=== PATIENT | male | born 1970 | race Caucasian/White ===

== ENCOUNTER 2017-07-15 06:27 | Outpatient (CLI) | payer OTHER | END 2017-07-15 06:43 | disposition home or self-care (01) | LOC: LAB 06:27 | DX: R76.11 Nonspecific reaction to tuberculin skin test without active tuberculosis (principal) ==

== ENCOUNTER → 2018-03-31 06:13 | Outpatient (CLI) | payer OTHER | END | disposition home or self-care (01) | LOC: LAB 06:13 | DX: E03.8 Other specified hypothyroidism (principal); N40.0 Benign prostatic hyperplasia without lower urinary tract symptoms; R73.9 Hyperglycemia, unspecified ==

== ENCOUNTER 2018-06-17 15:48 | Outpatient (CLI) | payer OTHER | END 2018-06-17 18:00 | disposition home or self-care (01) | LOC: RAD 15:48 | DX: R05 Cough (principal) ==

== ENCOUNTER 2018-06-17 15:53 | Outpatient (CLI) | payer OTHER | END 2018-06-17 18:00 | disposition home or self-care (01) | LOC: LAB 15:53 | DX: R05 Cough (principal) ==

== ENCOUNTER 2018-12-05 11:43 | Outpatient (CLI) | payer OTHER | END 2018-12-05 13:47 | disposition home or self-care (01) | LOC: RAD 11:43 | DX: M12.561 Traumatic arthropathy, right knee (principal) ==

== ENCOUNTER 2019-12-30 10:00 | Outpatient (CLI) | payer OTHER | END 2019-12-30 15:00 | disposition home or self-care (01) | LOC: PPH VACUNA 10:00 | DX: Z23 Encounter for immunization (principal) ==

== ENCOUNTER 2020-03-10 05:00 | Outpatient (CLI) | payer OTHER | END 2020-03-10 15:00 | disposition home or self-care (01) | LOC: LAB 05:00 | PROVIDERS: ATTEND Internal Medicine Geriatric Medicine | DX: Z20.828 Contact with and (suspected) exposure to other viral communicable diseases (principal); E03.8 Other specified hypothyroidism; E56.8 Deficiency of other vitamins; E78.2 Mixed hyperlipidemia; I11.9 Hypertensive heart disease without heart failure; E11.9 Type 2 diabetes mellitus without complications; E55.9 Vitamin D deficiency, unspecified; H01.9 Unspecified inflammation of eyelid ==

== ENCOUNTER 2020-03-27 08:53 | Outpatient (CLI) | payer OTHER | END 2020-03-27 18:20 | disposition home or self-care (01) | LOC: PPH VACUNA 08:53 | DX: Z23 Encounter for immunization (principal) ==

== ENCOUNTER 2020-06-13 13:47 | Outpatient (CLI) | payer OTHER | END 2020-06-13 15:29 | disposition home or self-care (01) | LOC: LAB 13:47 | PROVIDERS: ATTEND Internal Medicine Pulmonary Disease | DX: R05 Cough (principal); Z20.828 Contact with and (suspected) exposure to other viral communicable diseases; Z20.822 Contact with and (suspected) exposure to COVID-19; R06.02 Shortness of breath; R50.9 Fever, unspecified ==

== ENCOUNTER 2020-10-13 17:00 | Outpatient (CLI) | payer OTHER | END 2020-10-13 17:01 | disposition home or self-care (01) | LOC: LAB 17:00 | PROVIDERS: ATTEND Internal Medicine Pulmonary Disease | DX: E72.89 Other specified disorders of amino-acid metabolism (principal); I11.9 Hypertensive heart disease without heart failure ==

== ENCOUNTER 2020-10-25 13:11 | Outpatient (CLI) | payer OTHER | END 2020-10-25 14:44 | disposition home or self-care (01) | LOC: LAB 13:11 | PROVIDERS: ATTEND Internal Medicine Pulmonary Disease | DX: U07.1 COVID-19 (principal); R05 Cough; R06.02 Shortness of breath; R50.9 Fever, unspecified ==

== ENCOUNTER 2020-12-25 09:50 | Outpatient (CLI) | payer OTHER | END 2020-12-25 10:50 | disposition home or self-care (01) | LOC: ASH CLINIC 09:50 | PROVIDERS: ATTEND Internal Medicine Pulmonary Disease | DX: Z23 Encounter for immunization (principal); U07.1 COVID-19 ==

== ENCOUNTER 2021-01-17 11:00 | Outpatient (CLI) | payer OTHER | END 2021-01-17 11:15 | disposition home or self-care (01) | LOC: PPH VACUNA 11:00 | PROVIDERS: ATTEND Emergency Medicine Pediatric Emergency Medicine | DX: Z23 Encounter for immunization (principal) ==

== ENCOUNTER 2021-08-02 08:00 | Outpatient (CLI) | payer OTHER | END 2021-08-02 08:30 | disposition home or self-care (01) | LOC: PPH VACUNA 08:00 | PROVIDERS: ATTEND Emergency Medicine Pediatric Emergency Medicine | DX: Z23 Encounter for immunization (principal) ==

== ENCOUNTER 2022-01-17 08:00 | Outpatient (CLI) | payer OTHER | END 2022-01-17 08:05 | disposition home or self-care (01) | LOC: PPH VACUNA 08:00 | PROVIDERS: ATTEND Emergency Medicine Pediatric Emergency Medicine | DX: Z23 Encounter for immunization (principal) ==